=== PATIENT | male | born 1990 | race Caucasian/White ===

== ENCOUNTER 2024-06-17 11:54 | Emergency (ER) | payer SELFPAY ==
[2024-06-17 11:55] VITALS: BP 175/116; PULSE 112; RESP 20; TEMP 36.6; O2SAT 97; BMI 41.3
--- NOTE | 2024-06-17 12:30 | EDS_ITS ---
HPI History of Present Illness Chief Complaint: Dental Detail of Chief Complaint: Facial swelling and dental pain Informant: patient Narrative Narrative: Patient presents the emergency department with facial swelling and dental pain. Patient states he has not been able to establish with a dentist or a doctor in the area as he moved here from [place] about 4 5 months ago. Denies fevers chills or sweats. Patient states that he has poor dentition. He said facial swelling for about 4 days. He is not diabetic and has no other medical history. [facility] Medical History (Updated 06/17/24 @ 12:[address] Reji Mcgarry, DO) High cholesterol Hypertension Emotional problems Home Medications ?Medication ?Instructions ?Recorded ?Last Taken ?Type bupropion HCl 150 mg 24 hr tablet, 150 mg PO QAM #30 tabs 03/04/24 Unknown Rx extended release bupropion HCl 300 mg 24 hr tablet, 300 mg PO QAM #30 tabs 03/04/24 Unknown Rx extended release lisinopril 20 mg tablet 20 mg PO QDAY 03/04/24 Unknown History vortioxetine 10 mg tablet 10 mg PO DAILY #30 tabs 03/04/24 Unknown Rx (Trintellix) clindamycin HCl 300 mg capsule 300 mg PO Q6H #40 CAPSULES 06/17/24 Unknown Rx (Cleocin HCl) hydrocodone-acetaminophen 5-325mg 1 tab PO Q4H PRN PRN Pain 2 days 06/17/24 Unknown Rx 5mg-325mg #10 TABLETS Allergy/AdvReac Type Severity Reaction Status Date / Time Sulfa (Sulfonamide Allergy Severe Hives Verified 06/17/24 11:55 Antibiotics) Family History (Updated 03/04/24 @ 14:46 by Almita Gonzales) Other High cholesterol Hypertension Social History (Updated 03/04/24 @ 14:44 by Almita Gonzales) Smoking Status: Current every day smoker tobacco type: cigarettes ROS ROS ED Review of Systems ROS Unobtainable: other Constitutional Constitutional ED: Reports lethargy; Denies chills, fever(s), sweats or weight loss Eyes Eyes: Denies blurry vision, change in vision or diplopia ENT ENT ED: Reports other Details: Dental pain and left upper facial swelling ; Denies rhinorrhea or sore throat Cardiovascular Cardiovascular: Denies chest pain, orthopnea or racing heartbeat Respiratory/Chest Respiratory/Chest: Denies cough, dyspnea, dyspnea on exertion, orthopnea or sputum Gastrointestinal Gastrointestinal: Denies abdominal pain, diarrhea, nausea or vomiting Genitourinary Genitourinary ED: Denies dysuria, hematuria or urinary frequency Musculoskeletal Musculoskeletal: Denies arthralgias, back pain, myalgias or neck pain Integumentary Denies abscess, Abrasions or rash Neurologic Neurologic: Denies headache(s) or weakness Psychiatric Psychiatric: Denies anxiety, depression or suicidal thoughts Endocrine Endocrinology: Denies polydipsia, polyphagia or polyuria Hematologic/Lymphatic Hematologic/Lymphatic: Denies easy bleeding, easy bruising or lymphadenopathy Allergic/Immunologic Allergic/Immunologic ED: Denies mouth swelling, tongue swelling or urticaria EXAM Physical Exam Const Vital Signs: 06/17/24 11:55 Temperature 97.8 F Temperature Source Oral Pulse Rate 112 H Respiratory Rate 20 H Blood Pressure 175/116 H Blood Pressure Mean 135 Pulse Ox 97 Oxygen Delivery Method Room Air Positive well nourished and well developed General Appearance ED: well developed and NAD HEENT Reports TM's clear and moist mucous membranes HEENT Narrative: Dentition-patient has some slight swelling left upper face. Mild gingival erythema adjacent to tooth #11 which is broken more down to the gumline. He has multiple dental caries and very poor dentition. No discrete abscess noted. There is no facial cellulitis. normocephalic and atraumatic; Negative for trauma or tenderness Tympanic Membrane ED: Yes TM's clear Eyes PERRL and EOMs intact bilaterally General Eye ED: Negative for pale conjunctiva or scleral icterus Neck no lymphadenopathy, supple and no JVD General: Negative for tenderness Chest Wall inspection of chest normal and palpation of chest normal Chest: Negative for tenderness Resp normal respiratory effort and clear to auscultation bilaterally Effort and Inspection: Negative for respiratory distress or pain with movement Auscultation: Negative for rhonchi, wheezes or diminished lung sounds Cardio regular rate, regular rhythm, S1 normal heart sound, S2 normal heart sound and no murmurs Peripheral Pulses: pulses 2+ throughout GI normal to inspection, nondistended, normoactive bowel sounds, soft to palpation, non-tender, non-distended and no masses Back/Spine no CVA tenderness and no thoracic nor lumbar tenderness Extremity normal to inspection General Extremety ED: Negative for edema General Extremity: Negative for edema Neuro oriented x3, CN's II-XII intact bilaterally, no sensory deficits noted and gait normal Sensorium / Orientation: awake, alert, oriented to person, oriented to place and oriented to time Motor Exam: strength 5/5 throughout and strength abnormal Psych mental status grossly normal Skin no rashes or lesions noted and no wounds MDM MDM MDM Narrative Medical decision making narrative: Patient with mild facial swelling and dental pain consistent with early dental abscess. Nothing amenable to I&D. Patient will be started on clindamycin and given a few [place] for pain. He will be given a list of dentist in the area to follow-up with. Discharge Plan Triage Chief Complaint: Dental ED Provider: Reji Mcgarry Dx/Rx/DC Orders Clinical Impression: Pain, dental, Abscess, dental Instructions: ED Dental Pain, ED Dental Cavity, ED Dental Abscess Prescriptions: New clindamycin HCl [Cleocin HCl] 300 mg capsule 300 mg PO Q6H Qty: 40 0RF hydrocodone-acetaminophen 5-325 mg tablet 1 tab PO Q4H PRN PRN (Reason: Pain) 2 Days Qty: 10 0RF No Action lisinopril 20 mg tablet 20 mg PO QDAY bupropion HCl 150 mg tablet extended release 24 hr 150 mg PO QAM Qty: 30 1RF bupropion HCl 300 mg tablet extended release 24 hr 300 mg PO QAM Qty: 30 1RF Trintellix 10 mg tablet 10 mg PO DAILY Qty: 30 1RF Primary Care Provider: Care Physician,No Primary Referrals: Care Physician,No Primary [Primary Care Provider] - Print Language: Hungarian Disposition Disposition: Home, Self Care
[2024-06-17] MEDS: Clindamycin HCl 150 MG Capsule 300 MG PO (13:07)
== END 2024-06-17 13:13 | disposition home or self-care (01) ==
PROVIDERS: Emergency Provider Emergency Medicine; Referring Provider Emergency Medicine; Visit Provider Emergency Medicine
DX: K04.7 Periapical abscess without sinus (principal); K02.9 Dental caries, unspecified; S02.5XXA Fracture of tooth (traumatic), initial encounter for closed fracture; X58.XXXA Exposure to other specified factors, initial encounter; I10 Essential (primary) hypertension; E78.00 Pure hypercholesterolemia, unspecified; F17.210 Nicotine dependence, cigarettes, uncomplicated; Z88.2 Allergy status to sulfonamides; Z79.899 Other long term (current) drug therapy
CPT/HCPCS: 99282